=== PATIENT | male | born 1975 | race Caucasian/White ===

== ENCOUNTER → 2018-01-06 | Outpatient (CLI) | payer BC, OTHER | LOC: CAT 15:07 | DX: K57.30 Diverticulosis of large intestine without perforation or abscess without bleeding (principal); R31.9 Hematuria, unspecified ==

== ENCOUNTER → 2020-05-29 | Outpatient (CLI) | payer OTHER | LOC: CAT 09:02 | PROVIDERS: ATTEND Family Medicine | DX: N20.1 Calculus of ureter (principal); Z87.442 Personal history of urinary calculi ==

== ENCOUNTER → 2021-05-28 | Outpatient (CLI) | payer OTHER | LOC: CAT 12:45 | PROVIDERS: ATTEND Nurse Practitioner | DX: R31.9 Hematuria, unspecified (principal); R10.9 Unspecified abdominal pain; Z87.442 Personal history of urinary calculi ==